=== PATIENT | female | born 1995 | race Caucasian/White ===

== ENCOUNTER 2020-07-31 18:35 | Outpatient (CLI) | payer BC ==
[2020-08-03 12:35] VITALS: BMI 33.2
== END 2020-07-31 21:43 | disposition home or self-care (01) ==
LOC: D.LDO 18:35
PROVIDERS: ATTEND Student in an Organized Health Care Education/Training Program
DX: O47.1 False labor at or after 37 completed weeks of gestation (principal)

== ENCOUNTER 2020-08-03 12:24 | Inpatient (IN) | payer BC ==
[~2020-08-03] VITALS: Ht 162.6 cm; Wt 87.5 kg
[2020-08-03] MEDS ORDERED: PRENAVITE1 TAB PO (12:33)
[2020-08-03 12:35] VITALS: BP 120/66; Ht 162.6 cm; Wt 87.5 kg
[2020-08-03 13:02] LABS: HEMATOCRIT 37.1 % (36.0-48.0); HEMOGLOBIN 12.6 g/dL (12-16); MCH 28.8 pg (26.0-34.0); MCHC 33.9 g/dL (31.0-37.0); MCV 84.9 fL (80.0-100.0); MEAN PLATELET VOLUME 7.2 fL (7.4-10.4); RBC 4.37 10x6/uL (4.00-5.40); RDW 13.3 % (11.5-14.5); WBC 10.7 10x3/uL (4.8-10.8)
[2020-08-03 15:28] LABS: BILIRUBIN NEGATIVE (NEGATIVE); KETONE NEGATIVE mg/dL (< 1+); NITRITE NEGATIVE (NEGATIVE); PH 7.5 (5.0-8.0); UROBILINOGEN NORMAL mg/dL (< 2)
[2020-08-03 15:47] LABS: UDS - AMPHET NEGATIVE QUAL (NEGATIVE); UDS - BARB NEGATIVE QUAL (NEGATIVE); UDS - BENZO NEGATIVE QUAL (NEGATIVE); UDS - COCAINE NEGATIVE QUAL (NEGATIVE); UDS - OPIATE NEGATIVE QUAL (NEGATIVE); UDS - PCP NEGATIVE QUAL (NEGATIVE); UDS - THC NEGATIVE QUAL (NEGATIVE)
--- NOTE | 2020-08-04 00:51 | NUR ---
PT REC'D TO LABOR AND DELIVERY VIA STRETCHER FROM RECOVERY. IV TO RT AC. SITE CLEAR AND PATENT. LUNGS CLEAR. BS+. INCISION TO ABDOMEN INTACT WITH GLUE. NO BLEEDING NOTED. ICE PACK TO INCISION. HOLT CATH IN PLACE AND PATENT WITH DARK GEORGE URINE NOTED. SCDS PLACED AT THIS TIME. PT RATES PAIN 10/10. PT ORIENTED TO ROOM AND CALL LIGHT. NO DISTRESS NOTED. Peyman FELDER RN
--- NOTE | 2020-08-04 03:05 | NUR ---
pt asleep at this time. did not awaken. rafa sotelo rn
[2020-08-04 07:02] VITALS: BP 116/60
--- NOTE | 2020-08-04 21:44 | NUR ---
PT MEDICATED WITH TORADOL FOR PAIN LEVEL OF 4/10. NO DISTRESS NOTED. Peyman FELDER RN
[2020-08-04 21:53] VITALS: BP 116/56
--- NOTE | 2020-08-04 21:53 | NUR ---
VSS. FUNDUS FIRM AND MIDLINE WITH SMALL LOCHIA NOTED. SALINE LOCK TO THE RT WRIST INTACT. PT UP TO BATHROOM. VOIDED 600 ML. ASSISTED WITH PERICARE. PT TOLERATED WELL PT AMBULATED TO ROOM 1219 FOR DURATION OF HOSPITAL STAY. Peyman FELDER RN
--- NOTE | 2020-08-04 22:00 | NUR ---
CORRECTION: PT IS NOW ON WOMENS SERVICE.
--- NOTE | 2020-08-04 22:00 | NUR ---
PT IS NOT ON WOMENS SERVICES. SHE IS HER BED BUT ANXIOUS. WHEN ASKED WHAT WAS WRONG SHE STARTED SAYING THE NURSERY NURSERY NURSE WAS COMING TO BRING PAPERS, TO TALK ABOUT THE BABY BEING A LITTLE COOL AND MAYBE GOING UNDER THE WARMER TO WARM UP. I EXPLAINED IT ALL AGAIN TO HER AND SHE SEEMED TO SETTLE DOWN SOME. TALKED A LITTLE TO PT AND HER AND REARRANGED THE FURNITUURE FOR THE CRIB TO BE ABLE TO ROLL IN AND OUT FREELY. NO C/O OR NEEDS AT THIS TIME.
--- NOTE | 2020-08-05 | NUR ---
PT IS TRYING TO SLEEP. SHE HAS NO C/O AND NO NEEDS AT THIS TIME.
--- NOTE | 2020-08-05 02:01 | NUR ---
PT IS RESTING QUIETLY WITH HER EYES CLOSED. NO C/O AND NO NEEDS.
--- NOTE | 2020-08-05 06:08 | NUR ---
PT IS RESTING QUIETLY. NO C/O AT THIS TIME
[2020-08-05 07:52] LABS: BASOPHILS 0 % (0-2); EOSINOPHILS 0.4 % (0-7); LYMPHOCYTES 10.8 % (15-50); MCH 27.9 pg (26.0-34.0); MCHC 32.7 g/dL (31.0-37.0); MCV 85.5 fL (80.0-100.0); MEAN PLATELET VOLUME 7.3 fL (7.4-10.4); MONOCYTES 8.4 % (2-11); NEUTROPHILS 80.4 % (40-80); PLATELET COUNT 261 10x3/uL (130-400); RDW 13.4 % (11.5-14.5)
[2020-08-05 08:19] LABS: HEMATOCRIT 27.1 % (36.0-48.0); HEMOGLOBIN 8.9 g/dL (12-16); RBC 3.18 10x6/uL (4.00-5.40); WBC 18.1 10x3/uL (4.8-10.8)
--- NOTE | 2020-08-05 08:25 | NUR ---
INFANT TO BREAST AT THIS TIME. SHE RATES PAIN AT6/10 AND ASK FOR PAIN MED IF POSSIBLE. NO OTHER NEEDS VOICED.
--- NOTE | 2020-08-05 08:33 | NUR ---
PAIN MED GIVEN SCANNED TO EMAR. FUNDUS FIRM AT U/U WITH NO CLOTS WITH MASSAGE. DENIES NAUSEA OR DIZZINESS WHEN GETTING UP FROM BED. SALINE LOCK TO R WRIST PATENT AND FLUSHED WITH 5ML NS. DENIES NEEDS AT THIS TIME, CALL LIGHT IN REACH.
--- NOTE | 2020-08-05 08:55 | NUR ---
AM ASSESSMENT COMPLETED CHARTED TO FLOWSHEET. PT SITTING UP ON SIDE OF BED HOLDING . RATES PAIN AT 6/10, MEDS GIVEN SCANNED TO EMAR. SALINE LOCK TO RIGHT HAND FLUSHED EASILY WITH 5ML NS. DENIES CLOTS WITH VOIDS AND STATES BLEEDING IS "VERY LIGHT" SHE DENIES DIZZINESS WHEN GETTING UP FROM BED AND NO NAUSEA. BIKINI INCISION CLEAN AND DRY, FUNDUS FIRM AT U/1. CALL LIGHT IN REACH, SIG OTHER AT BEDSIDE.
[2020-08-05 10:22] VITALS: BP 91/41
--- NOTE | 2020-08-05 11:00 | NUR ---
PT RESTING ON RIGHT SIDE, NO DISTRESS NOTED. LEFT UNDISTURBED AT THIS TIME.
--- NOTE | 2020-08-05 13:45 | NUR ---
DENIES PAIN OR DISCOMFORT, LARGE ICE WATER REQUESTED. CALL LIGHT INREACH.
--- NOTE | 2020-08-05 15:30 | NUR ---
C/O TENDERNESS AND ITCHING AT SALINE LOCK SITE. UNDERSTANDS IF REMOVED NOW THAT COULD POSSIBLY NEED TO BE RESTARTED, REMOVED WITH CATH INTACT. NO OTHER NEEDS AT THIS TIME.
[2020-08-05 15:57] LABS: HEMATOCRIT 28.1 % (36.0-48.0); HEMOGLOBIN 9.1 g/dL (12-16)
[2020-08-05 16:33] LABS: BASOPHILS 0.1 % (0-2); EOSINOPHILS 0.9 % (0-7); LYMPHOCYTES 15.5 % (15-50); MCH 28.6 pg (26.0-34.0); MCHC 32.9 g/dL (31.0-37.0); MCV 86.9 fL (80.0-100.0); MEAN PLATELET VOLUME 7.4 fL (7.4-10.4); MONOCYTES 7.2 % (2-11); NEUTROPHILS 76.3 % (40-80); PLATELET COUNT 253 10x3/uL (130-400); RDW 13.4 % (11.5-14.5); WBC 15.2 10x3/uL (4.8-10.8)
[2020-08-05 16:38] VITALS: BP 109/64
--- NOTE | 2020-08-05 17:05 | NUR ---
ROOMING IN CONSENT GONE OVER WITH PT PRIOR TO HER SIGNING. VERBAL AND WRITTEN DISCHARGE INSTRUCTIONS ALSO DONE AT THIS TIME. SHE DENIES QUESTIONS OR CONCERNS. SIG OTHER AT BEDSIDE. INFANT TO BREAST AT THIS TIME.
--- NOTE | 2020-08-05 17:36 | NUR ---
CBC RESULTS CALLED TO DR HENDRICKSON REQUESTED.
== END 2020-08-05 17:38 | disposition home or self-care (01) | DRG 807 ==
LOC: D.WS 12:24 → D.LD 12:24 → D.SDCHOLD 08-04 14:17 → D.LD 08-04 14:21 → D.WS 08-04 22:00
PROVIDERS: ADMIT Obstetrics & Gynecology; ATTEND Obstetrics & Gynecology
PROC: 10E0XZZ Delivery of Products of Conception, External Approach (ICD-10-PCS; principal; 2020-08-04)
PROC: 10907ZC Drainage of Amniotic Fluid, Therapeutic from Products of Conception, Via Natural or Artificial Opening (ICD-10-PCS; 2020-08-04)
PROC: 0UQGXZZ Repair Vagina, External Approach (ICD-10-PCS; 2020-08-04)
PROC: 3E033VJ Introduction of Other Hormone into Peripheral Vein, Percutaneous Approach (ICD-10-PCS; 2020-08-04)
DX: O71.4 Obstetric high vaginal laceration alone (principal); Z37.0 Single live birth; Z3A.39 39 weeks gestation of pregnancy; O99.824 Streptococcus B carrier state complicating childbirth